=== PATIENT | male | born 1980 | race Caucasian/White ===

== ENCOUNTER 2022-12-07 14:12 | Emergency (ER) | payer MEDICAID ==
[2022-12-07] MEDS ORDERED: Lidocaine 1% 5 ML VIAL INJECT ONE (14:45)
[2022-12-07] MEDS ORDERED: Bupivacaine 0.5% 10 ML SDV INJECT ONE (14:45)
[2022-12-07] MEDS ORDERED: Ketorolac 30 MG/ML SDV IM ONE (14:45)
== END 2022-12-07 15:10 | disposition home or self-care (01) ==
LOC: MW.ED 14:12
DX: M62.830 Muscle spasm of back (principal); F17.210 Nicotine dependence, cigarettes, uncomplicated
CPT/HCPCS: 20552; 96372; 99283; J1885; J3360; J3490